=== PATIENT | male | born 1970 | race Caucasian/White ===

== ENCOUNTER 2019-05-05 19:09 | Emergency (ER) | payer BC ==
[2019-05-05] MEDS ORDERED: NA CHLORIDE 0.9% 1,000 ML ONE (19:27)
--- NOTE | 2019-05-05 19:55 | RAD REPORT ---
EXAM DESCRIPTION: RAD - Hand Right 3 View - 05/05/2019 7:46 pm CLINICAL HISTORY: Right hand pain status post injury FINDINGS: No fracture or dislocation is seen.
--- NOTE | 2019-05-05 20:51 | ER ---
Nurse's Notes [facility] Name: Luis Live Age: 48 yrs Sex: Male : 1970 Arrival Date: 05/05/2019 Time: 19:11 Bed 6 Private MD: Diagnosis: Laceration of extensor muscle, fascia and tendon of left index finger at wrist and hand level;Laceration of extensor muscle, fascia and tendon of left middle finger at wrist and hand level;Dehydration Presentation: 05/05 19:10 Method Of Arrival: Ambulatory 19:10 Transition of care: patient was not received from another setting of care. Complicating fc Factors: There are no complicating factors for this patient. Onset of symptoms was May 05, 2019 at 19:00. Risk Assessment: Do you want to hurt yourself or someone else? Patient reports no desire to harm self or others. Initial Sepsis Screen: Does the patient meet any 2 criteria? Systolic BP < 90 mmHg. Yes Does the patient have a suspected source of infection? No. Patient's initial sepsis screen is negative. Care prior to arrival: Bleeding of injury controlled. 19:10 Acuity: WM 3 fc 19:10 Presenting complaint: Patient states: that he was trimming the bushes and cut his left fc 2nd and 3rd fingers. Bleeding is currently controlled. Historical: - Allergies: 19:25 PENICILLINS; fc 19:25 Erythromycin; fc 19:25 Ibuprofen; fc 19:25 ceftra; fc - Home Meds: 19:25 Vyvanse oral oral [Active]; Trintellix oral oral [Active]; Abilify oral oral [Active]; fc Benicar oral oral [Active]; Lialda oral oral [Active]; - PMHx: 19:25 Hypertension; Ulcerative colitis; Anxiety; Depression; Back pain; ADD/ADHD; fc - PSHx: 19:25 None; fc - Immunization history:: Last tetanus immunization: < 10 years ago Flu vaccine is not up to date. - Social history:: Smoking status: Patient uses tobacco products, denies chronic smoking, but will smoke occasionally, Patient uses alcohol, occasionally. Patient/guardian denies using street drugs. - Ebola Screening: : Patient negative for fever greater than or equal to 101.5 degrees Fahrenheit, and additional compatible Ebola Virus Disease symptoms Patient denies exposure to infectious person Patient denies travel to an Ebola-affected area in the 21 days before illness onset. Screenin:10 Abuse screen: Denies threats or abuse. Nutritional screening: No deficits noted. Tuberculosis screening: No symptoms or risk factors identified. Fall Risk None identified. Assessment: 19:36 General: Appears in no apparent distress. uncomfortable, Behavior is calm, cooperative. bb Pain: Complains of pain in left index and middle finger. Neuro: Level of Consciousness is awake, alert, obeys commands, Oriented to person, place, time, situation. Cardiovascular: Heart tones S1 S2 present skin is pale and clammy. Respiratory: Airway is patent Respiratory effort is even, unlabored, Respiratory pattern is regular. GI: No signs and/or symptoms were reported involving the gastrointestinal system. Derm: Skin is clammy, Skin is pale, Skin temperature is cool. Musculoskeletal: Circulation, motion, and sensation intact. Reports pain in left middle and index finger. Injury Description: Laceration sustained to left middle and index finger is not bleeding. Vital Signs: 19:10 BP 82 / 57; Pulse 71; Resp 18; Temp 99.1(O); Pulse Ox 95% on R/A; Weight 106.59 kg (R); fc Height 6 ft. 1 in. (185.42 cm) (R); Pain 3/10; 20:24 BP 103 / 71; Pulse 75; Resp 17; Pulse Ox 98% on R/A; tl1 21:21 BP 107 / 89 Supine; Pulse 85; tl1 21:21 BP 113 / 92 Standing; Pulse 81; tl1 21:22 BP 110 / 90 Sitting; Pulse 79; tl1 21:24 Resp 16; Pulse Ox 98% on R/A; Pain 3/10; tl1 21:24 Temp 98.9; tl1 19:10 Body Mass Index 31.00 (106.59 kg, 185.42 cm) ED Course: 19:10 Arm band placed on Patient placed in an exam room, on a stretcher. 19:10 Patient has correct armband on for positive identification. Call light in reach. Side rails up X 1. Pulse ox on. NIBP on. 19:11 Patient arrived in ED. as 19:17 Abelino West MD is Attending Physician. tw4 19:20 Triage completed. 19:25 Inserted saline lock: 20 gauge in right antecubital area, using aseptic technique. bb 19:29 Allie Foote, RN is Primary Nurse. bb 19:43 Hand Right 3 View In Process Unspecified. EDMS 21:00 Dressings: Kerlix Steri strips 1/4 " X 1;. tl1 21:22 No provider procedures requiring assistance completed. IV discontinued, intact, tl1 bleeding controlled, No redness/swelling at site. Pressure dressing applied. 21:22 Wound care: located on palmar aspect of distal phalanx of left middle finger and palmar tl1 aspect of distal phalanx of left index finger was cleaned with Hibiclens, soaked in normal saline solution. Administered Medications: 19:29 Drug: NS 0.9% 1000 ml Route: IV; Rate: 1 bolus; Site: right antecubital; bb 20:56 Follow up: IV Status: Completed infusion; IV Intake: 1000ml tl1 Intake: 20:56 IV: 1000ml; Total: 1000ml. tl1 Outcome: 20:50 Discharge ordered by . tw4 21:25 Discharged to home ambulatory, with family. tl1 21:25 Condition: good 21:25 Discharge instructions given to patient, family, Instructed on discharge instructions, follow up and referral plans. wound care, Demonstrated understanding of instructions, follow-up care, wound care. 21:25 Patient left the ED. tl1 Signatures: Dispatcher [employer] EDMT Bessie Andino RN RN Briana Lynn as Alile Foote RN RN Antonina New RN RN tl1 Abelino West MD MD tw4 Corrections: (The following items were deleted from the chart) 19:21 19:18 Presenting complaint: Patient states: that he was trimming the bushes and cut his fc left 2nd and 3rd fingers. Bleeding is currently controlled. 21:22 21:21 BP 113 / 92 Sitting; Pulse 81bpm; tl1 tl1
--- NOTE | 2019-05-05 20:52 | EDPHYS ---
Physician Documentation [facility] Name: Luis Live Age: 48 yrs Sex: Male : 1970 Arrival Date: 05/05/2019 Time: 19:11 Bed 6 Private MD: ED Physician Abelino West HPI: 05/05 21:05 This 48 yrs old Male presents to ER via Ambulatory with complaints of tw4 Laceration To Hand. 21:05 The patient has a laceration related to: doing yard work, from a weed eater, occurred tw4 and drinking heavily today. The laceration(s) is(are) located on the left index fingernail and left middle fingernail. Onset: The symptoms/episode began/occurred today. Associated signs and symptoms: The patient has no apparent associated signs or symptoms. The patient has not experienced similar symptoms in the past. Historical: - Allergies: 19:25 PENICILLINS; fc 19:25 Erythromycin; fc 19:25 Ibuprofen; fc 19:25 ceftra; fc - Home Meds: 19:25 Vyvanse oral oral [Active]; Trintellix oral oral [Active]; Abilify oral oral [Active]; fc Benicar oral oral [Active]; Lialda oral oral [Active]; - PMHx: 19:25 Hypertension; Ulcerative colitis; Anxiety; Depression; Back pain; ADD/ADHD; fc - PSHx: 19:25 None; fc - Immunization history:: Last tetanus immunization: < 10 years ago Flu vaccine is not up to date. - Social history:: Smoking status: Patient uses tobacco products, denies chronic smoking, but will smoke occasionally, Patient uses alcohol, occasionally. Patient/guardian denies using street drugs. - Ebola Screening: : Patient negative for fever greater than or equal to 101.5 degrees Fahrenheit, and additional compatible Ebola Virus Disease symptoms Patient denies exposure to infectious person Patient denies travel to an Ebola-affected area in the 21 days before illness onset. ROS: 21:05 Constitutional: Negative for fever, chills, and weight loss, Eyes: Negative for injury, tw4 pain, redness, and discharge, Cardiovascular: Negative for chest pain, palpitations, and edema, Respiratory: Negative for shortness of breath, cough, wheezing, and pleuritic chest pain, Abdomen/GI: Negative for abdominal pain, nausea, vomiting, diarrhea, and constipation, Back: Negative for injury and pain, Neuro: Negative for headache, weakness, numbness, tingling, and seizure, Psych: Negative for depression, anxiety, suicide ideation, homicidal ideation, and hallucinations. 21:05 MS/extremity: Positive for laceration. Exam: 21:05 Constitutional: This is a well developed, well nourished patient who is awake, alert, tw4 and in no acute distress. Eyes: Pupils equal round and reactive to light, extra-ocular motions intact. Lids and lashes normal. Conjunctiva and sclera are non-icteric and not injected. Cornea within normal limits. Periorbital areas with no swelling, redness, or edema. Cardiovascular: Regular rate and rhythm with a normal S1 and S2. No gallops, murmurs, or rubs. Normal PMI, no JVD. No pulse deficits. Respiratory: Lungs have equal breath sounds bilaterally, clear to auscultation and percussion. No rales, rhonchi or wheezes noted. No increased work of breathing, no retractions or nasal flaring. Abdomen/GI: Soft, non-tender, with normal bowel sounds. No distension or tympany. No guarding or rebound. No evidence of tenderness throughout. 21:05 Musculoskeletal/extremity: Extremities: noted in the left index fingernail: laceration, There is no evidence of abrasion, bite, contusion, decreased ROM, deformity, ecchymosis, erythema, puncture, rash, swelling, noted in the left middle fingernail: laceration, no evidence of abrasion, decreased ROM, deformity, ecchymosis, erythema, rash, swelling. Vital Signs: 19:10 BP 82 / 57; Pulse 71; Resp 18; Temp 99.1(O); Pulse Ox 95% on R/A; Weight 106.59 kg (R); fc Height 6 ft. 1 in. (185.42 cm) (R); Pain 3/10; 20:24 BP 103 / 71; Pulse 75; Resp 17; Pulse Ox 98% on R/A; tl1 21:21 BP 107 / 89 Supine; Pulse 85; tl1 21:21 BP 113 / 92 Standing; Pulse 81; tl1 21:22 BP 110 / 90 Sitting; Pulse 79; tl1 21:24 Resp 16; Pulse Ox 98% on R/A; Pain 3/10; tl1 21:24 Temp 98.9; tl1 19:10 Body Mass Index 31.00 (106.59 kg, 185.42 cm) fc Laceration: 21:10 Wound Repair of 1cm ( 0.4in ) subcutaneous laceration to left index fingernail. Distal tw4 neuro/vascular/tendon intact. Skin closed with 1-0 Prolene using steeri strips. Dressed with bandaid. Patient tolerated well. 21:10 Wound Repair of subcutaneous laceration to left middle fingernail. Distal tw4 neuro/vascular/tendon intact. 21:10 Wound Repair of 2cm ( 0.8in ) avulsed laceration to left middle fingernail. Distal tw4 neuro/vascular/tendon intact. Wound prep: Simple cleansing. Skin closed with 1-0 Prolene using steri strips. MDM: 19:17 Patient medically screened. tw4 21:10 Differential diagnosis: superficial laceration, tendon injury. Data reviewed: vital tw4 signs, nurses notes. Counseling: I had a detailed discussion with the patient and/or guardian regarding: the historical points, exam findings, and any diagnostic results supporting the discharge/admit diagnosis, radiology results. Special discussion: I discussed with the patient/guardian in detail that at this point there is no indication for admission to the hospital. It is understood, however, that if the symptoms persist or worsen the patient needs to return immediately for re-evaluation. 05/05 19:43 Order name: Hand Right 3 View EDMS 05/05 19:22 Order name: Vital Signs: orthostatic; Complete Time: 21:24 tw4 Administered Medications: 19:29 Drug: NS 0.9% 1000 ml Route: IV; Rate: 1 bolus; Site: right antecubital; bb 20:56 Follow up: IV Status: Completed infusion; IV Intake: 1000ml tl1 Disposition: 05/05/19 20:50 Discharged to Home. Impression: Laceration of extensor muscle, fascia and tendon of left index finger at wrist and hand level, Laceration of extensor muscle, fascia and tendon of left middle finger at wrist and hand level, Dehydration. - Condition is Stable. - Discharge Instructions: Dehydration, Adult, Laceration Care, Adult. - Medication Reconciliation Form, Thank You Letter, Antibiotic Education, Prescription Opioid Use form. - Follow up: Private Physician; When: Upon discharge from the Emergency Department; Reason: If symptoms return, Recheck today's complaints, Continuance of care. - Problem is new. - Symptoms have improved. Signatures: Dispatcher [employer] [facility] Bessie Andino, RN RN Allie Vee RN RN bb Antonina New RN RN tl1 Abelino West MD MD tw4 Corrections: (The following items were deleted from the chart) 19:43 19:25 Finger-Thumb Left+.RAD.RAD.BRZ ordered. [facility] 21:25 20:50 05/05/2019 20:50 Discharged to Home. Impression: Laceration of extensor muscle, tl1 fascia and tendon of left index finger at wrist and hand level; Laceration of extensor muscle, fascia and tendon of left middle finger at wrist and hand level; Dehydration. Condition is Stable. Forms are Medication Reconciliation Form, Thank You Letter, Antibiotic Education, Prescription Opioid Use. Follow up: Private Physician; When: Upon discharge from the Emergency Department; Reason: If symptoms return, Recheck today's complaints, Continuance of care. Problem is new. Symptoms have improved. tw4
[2019-05-05 21:36] VITALS: O2SAT 98
[2019-05-05 21:39] VITALS: BP 110/90
[2019-05-05 21:40] VITALS: TEMP 98.9
== END 2019-05-05 21:25 | disposition home or self-care (01) ==
LOC: ER 19:09
PROC: 0KQD0ZZ Repair Left Hand Muscle, Open Approach (ICD-10-PCS; principal; 2019-05-05)
DX: S66.321A Laceration of extensor muscle, fascia and tendon of left index finger at wrist and hand level, initial encounter (principal); S66.323A Laceration of extensor muscle, fascia and tendon of left middle finger at wrist and hand level, initial encounter; W31.89XA Contact with other specified machinery, initial encounter; Y93.H2 Activity, gardening and landscaping; Y92.9 Unspecified place or not applicable
CPT/HCPCS: 73130; 96360; 99284; 13132; J7030

== ENCOUNTER 2020-11-30 05:11 | Emergency (ER) | payer BC ==
--- OUTSIDE RECORDS SUMMARY | 2020-11-30 05:14 | XMS REPORT | Continuity of Care Document ---
:1970 Author Organization [facility] t Address [address] [place] [address] [address]. [address] [place] [address] Care Team Providers Name Role Phone DR ISADORA Attending Clinician Unavailable DR ISADORA Admitting Clinician Unavailable Problems This patient has no known problems. Allergies, Adverse Reactions, Alerts This patient has no known allergies or adverse reactions. Medications This patient has no known medications. Procedures This patient has no known procedures. Encounters Start End Encounter Admission Attending Care Care Encounter Source Date/Time Date/Time Type Type Clinicians Facility Department ID 2020-09-24 2020-09-24 Outpatient [facility] [id number] 00:00:00 00:00:00 [facility] 2020-07-14 2020-07-14 Outpatient [facility] [id number] 00:00:00 00:00:00 [facility] 2018-03-15 2018-03-15 Out[place] [facility] [id number] 06:35:00 08:50:00 DINA Mcnally [facility] Results This patient has no known results.
[2020-11-30 07:04] LABS: SARS-COV-2 RT PCR NEGATIVE (NEGATIVE)
--- NOTE | 2020-11-30 08:28 | ER ---
Nurse's Notes [facility] Name: Luis Live Age: 50 yrs Sex: Male : 1970 Arrival Date: 11/30/2020 Time: 05:16 Bed 16 Private MD: Diagnosis: Acute bronchitis Presentation: 11/30 05:29 Chief complaint: Patient states: coughing up congestion, low grade fever, difficulty iw breathing, headache, started yesterday, is fully vaccinated for COVID X 1 month ago. Coronavirus screen: Client presents with at least one sign or symptom that may indicate coronavirus-19. Ebola Screen: Patient negative for fever greater than or equal to 101.5 degrees Fahrenheit, and additional compatible Ebola Virus Disease symptoms Patient denies exposure to infectious person. Patient denies travel to an Ebola-affected area in the 21 days before illness onset. No symptoms or risks identified at this time. Initial Sepsis Screen: Does the patient meet any 2 criteria? No. Patient's initial sepsis screen is negative. Does the patient have a suspected source of infection? No. Patient's initial sepsis screen is negative. Risk Assessment: Do you want to hurt yourself or someone else? Patient reports no desire to harm self or others. Onset of symptoms was November 29, 2020. 05:29 Method Of Arrival: Ambulatory iw 05:29 Acuity: WM 3 iw Historical: - Allergies: 05:31 PENICILLINS; iw 05:31 Ibuprofen; iw 05:31 Erythromycin; iw 05:31 Septra; iw - PMHx: 05:31 ADD/ADHD; Anxiety; Back pain; Depression; Hypertension; ulcerative colitis; iw - PSHx: 05:31 None; iw - Immunization history:: Adult Immunizations Client reports receiving the 2nd dose of the Covid vaccine. - Social history:: Smoking status: Patient reports the use of cigarette tobacco products, smokes one-half pack cigarettes per day. Screenin:41 Abuse screen: Denies threats or abuse. Denies injuries from another. Nutritional rr5 screening: No deficits noted. Tuberculosis screening: No symptoms or risk factors identified. Fall Risk None identified. Total Spencer Fall Scale indicates No Risk (0-24 pts). Assessment: 05:30 General: Appears in no apparent distress. comfortable, Behavior is calm, cooperative, rr5 appropriate for age, Reports fever for. 05:30 Pain: Denies pain. Neuro: Level of Consciousness is awake, alert, obeys commands, rr5 Oriented to person, place, situation. Cardiovascular: Capillary refill < 3 seconds Patient's skin is warm and dry. Respiratory: Reports shortness of breath cough that is congestion Airway is patent Respiratory effort is even, unlabored, Respiratory pattern is regular, symmetrical, GI: No signs and/or symptoms were reported involving the gastrointestinal system. : No signs and/or symptoms were reported regarding the genitourinary system. EENT: No signs and/or symptoms were reported regarding the EENT system. Derm: Skin is intact, is healthy with good turgor, Skin temperature is warm. Musculoskeletal: Capillary refill < 3 seconds. Vital Signs: 05:29 BP 139 / 87; Pulse 95; Resp 18; Temp 98.6(O); Pulse Ox 98% on R/A; Weight 110.68 kg; iw Height 6 ft. 2 in. (187.96 cm); 06:30 BP 129 / 97; Pulse 90; Resp 17; Pulse Ox 99% ; rr5 08:22 BP 135 / 98; Pulse 103; Resp 20; Pulse Ox 97% on R/A; kg 05:29 Body Mass Index 31.33 (110.68 kg, 187.96 cm) iw ED Course: 05:16 Patient arrived in ED. bp1 05:29 Boy Tobar, RN is Primary Nurse. rr5 05:31 Triage completed. iw 05:32 Arm band placed on. iw 05:38 Nacho Schmid MD is Attending Physician. mh7 05:41 Patient has correct armband on for positive identification. Bed in low position. Call rr5 light in reach. Pulse ox on. NIBP on. 06:00 COVID swab sent to lab. Flu and/or RSV swab sent to lab. rr5 06:39 CXR XRAY In Process Unspecified. EDMS 08:18 No provider procedures requiring assistance completed. Patient did not have IV access kg during this emergency room visit. Administered Medications: No medications were administered Outcome: 08:27 Discharge ordered by . ma2 09:05 Discharged to home ambulatory. kg 09:05 Condition: good 09:05 Discharge instructions given to patient, Instructed on discharge instructions, follow up and referral plans. Demonstrated understanding of instructions, follow-up care, medications, Prescriptions given X 4. 09:06 Patient left the ED. kg Signatures: Dispatcher [employer] EDJessica Beyer RN RN iw Babar Kent MD MD ma2 Boy Tobar RN RN rr5 [facility] Nacho Schmid MD MD 7 Celina Yousif kg
--- NOTE | 2020-11-30 08:28 | EDPHYS ---
Physician Documentation [facility] Name: Luis Live Age: 50 yrs Sex: Male : 1970 Arrival Date: 11/30/2020 Time: 05:16 Bed 16 Private MD: ED Physician Nacho Schmid HPI: 11/30 06:48 This 50 yrs old Male presents to ER via Ambulatory with complaints of Fever, mh7 Cough, Runny Nose, Congestion. 06:48 The patient reports fever, not measured (subjective). Onset: The symptoms/episode mh7 began/occurred yesterday. Modifying factors: The patient has had contact with sick daughter. Associated signs and symptoms: Pertinent positives: cough, that is dry, myalgias, runny nose, sinus congestion, sore throat, Pertinent negatives: abdominal pain, altered mental status, arthralgias, backache, chest pain, chills, diarrhea, pulling at ears, earache, headache, hemoptysis, nausea, night sweats, sinus drainage, skin rash, shortness of breath, swelling, vomiting. Severity of symptoms: At their worst the symptoms were moderate last night, in the emergency department the symptoms have improved moderately. Historical: - Allergies: 05:31 PENICILLINS; iw 05:31 Ibuprofen; iw 05:31 Erythromycin; iw 05:31 Aprra; iw - PMHx: 05:31 ADD/ADHD; Anxiety; Back pain; Depression; Hypertension; ulcerative colitis; iw - PSHx: 05:31 None; iw - Immunization history:: Adult Immunizations Client reports receiving the 2nd dose of the Covid vaccine. - Social history:: Smoking status: Patient reports the use of cigarette tobacco products, smokes one-half pack cigarettes per day. ROS: 06:48 Eyes: Negative for injury, pain, redness, and discharge, Neck: Negative for injury, mh7 pain, and swelling, Cardiovascular: Negative for chest pain, palpitations, and edema, Abdomen/GI: Negative for abdominal pain, nausea, vomiting, diarrhea, and constipation, Back: Negative for injury and pain, : Negative for injury, bleeding, discharge, and swelling, MS/Extremity: Negative for injury and deformity, Skin: Negative for injury, rash, and discoloration, Neuro: Negative for headache, weakness, numbness, tingling, and seizure, Psych: Negative for depression, anxiety, suicide ideation, homicidal ideation, and hallucinations, Allergy/Immunology: Negative for hives, rash, and allergies, Endocrine: Negative for neck swelling, polydipsia, polyuria, polyphagia, and marked weight changes, Hematologic/Lymphatic: Negative for swollen nodes, abnormal bleeding, and unusual bruising. Exam: 06:48 Constitutional: This is a well developed, well nourished patient who is awake, alert, mh7 and in no acute distress. Head/Face: Normocephalic, atraumatic. Eyes: Pupils equal round and reactive to light, extra-ocular motions intact. Lids and lashes normal. Conjunctiva and sclera are non-icteric and not injected. Cornea within normal limits. Periorbital areas with no swelling, redness, or edema. ENT: Nares patent. No nasal discharge, no septal abnormalities noted. Tympanic membranes are normal and external auditory canals are clear. Oropharynx with no redness, swelling, or masses, exudates, or evidence of obstruction, uvula midline. Mucous membranes moist. Neck: Trachea midline, no thyromegaly or masses palpated, and no cervical lymphadenopathy. Supple, full range of motion without nuchal rigidity, or vertebral point tenderness. No Meningismus. Chest/axilla: Normal chest wall appearance and motion. Nontender with no deformity. No lesions are appreciated. Cardiovascular: Regular rate and rhythm with a normal S1 and S2. No gallops, murmurs, or rubs. Normal PMI, no JVD. No pulse deficits. Respiratory: Lungs have equal breath sounds bilaterally, clear to auscultation and percussion. No rales, rhonchi or wheezes noted. No increased work of breathing, no retractions or nasal flaring. Abdomen/GI: Soft, non-tender, with normal bowel sounds. No distension or tympany. No guarding or rebound. No evidence of tenderness throughout. Back: No spinal tenderness. No costovertebral tenderness. Full range of motion. Skin: Warm, dry with normal turgor. Normal color with no rashes, no lesions, and no evidence of cellulitis. MS/ Extremity: Pulses equal, no cyanosis. Neurovascular intact. Full, normal range of motion. Neuro: Awake and alert, GCS 15, oriented to person, place, time, and situation. Cranial nerves II-XII grossly intact. Motor strength 5/5 in all extremities. Sensory grossly intact. Cerebellar exam normal. Normal gait. Psych: Awake, alert, with orientation to person, place and time. Behavior, mood, and affect are within normal limits. Vital Signs: 05:29 BP 139 / 87; Pulse 95; Resp 18; Temp 98.6(O); Pulse Ox 98% on R/A; Weight 110.68 kg; iw Height 6 ft. 2 in. (187.96 cm); 06:30 BP 129 / 97; Pulse 90; Resp 17; Pulse Ox 99% ; rr5 08:22 BP 135 / 98; Pulse 103; Resp 20; Pulse Ox 97% on R/A; kg 05:29 Body Mass Index 31.33 (110.68 kg, 187.96 cm) MDM: 07:01 Transition of care: After a detail discussion of the patient's case, care is 7 transferred to Babar Kent MD. 08:27 Data reviewed: vital signs, nurses notes. Counseling: I had a detailed discussion with [facility] the patient and/or guardian regarding: the historical points, exam findings, and any diagnostic results supporting the discharge/admit diagnosis, the presence of at least one elevated blood pressure reading (>120/80) during this emergency department visit, the need for outpatient follow up. Response to treatment: the patient's symptoms have markedly improved after treatment. 08:27 Patient medically screened. [facility] 11/30 06:25 Order name: Rapid Strep; Complete Time: 07:06 [facility] 11/30 07:03 Order name: Throat Culture EDFL 11/30 05:44 Order name: CXR XRAY 11/30 07:05 Order name: COVID-19/FLU A+B; Complete Time: 07:06 EDFL Administered Medications: No medications were administered Disposition: 11/30/20 08:27 Discharged to Home. Impression: Acute bronchitis. - Condition is Stable. - Discharge Instructions: Acute Bronchitis, Adult. - Prescriptions for Tessalon Perles 100 mg Oral Capsule - take 1 capsule by ORAL route every 8 hours As needed; 15 capsule. Diclofenac Sodium 75 mg Oral Tablet Sustained Release - take 1 tablet by ORAL route 2 times per day; 30 tablet. Zithromax Z- Alan 250 mg Oral Tablet - take 1 tablet by ORAL route as directed for 5 days Day 1 - take two (2) tablets one time. Day 2, 3, 4 , 5 take one (1) tablet once daily.; 6 tablet. Medrol (Alan) 4 mg Oral Tablets, Dose Pack - take 1 tablet by ORAL route as directed - follow package instructions; 1 packet. - Medication Reconciliation Form, Thank You Letter, Antibiotic Education, Prescription Opioid Use, Work release form form. - Follow up: Private Physician; When: Tomorrow; Reason: If symptoms return. Signatures: Dispatcher [employer] EDMS Jessica Joy, RN RN iw Pablo Adams, LAYOUT MECHANIC-C LAYOUT MECHANIC-Cla1 Babar Kent MD MD ma2 Nacho Schmid MD MD 7 Celina Yousif kg Corrections: (The following items were deleted from the chart) 06:19 05:45 CORONAVIRUS+MR.LAB.BRZ ordered. EDMS EDMS 06:20 05:45 Influenza Screen (A \T\ B)+BA.LAB.BRZ ordered. EDMS EDMS 06:21 05:44 Influenza Screen (A \T\ B)+BA.LAB.BRZ ordered. EDMS EDMS 06:22 05:44 CORONAVIRUS+MR.LAB.BRZ ordered. EDMS EDMS 06:49 06:48 The patient reports fever, mh7 7 09:06 08:27 11/30/2020 08:27 Discharged to Home. Impression: Acute bronchitis. Condition is kg Stable. Forms are Medication Reconciliation Form, Thank You Letter, Antibiotic Education, Prescription Opioid Use. Follow up: Private Physician; When: Tomorrow; Reason: If symptoms return. ma2
[2020-11-30 09:31] VITALS: TEMP 98.6
[2020-11-30 09:33] VITALS: BP 135/98; O2SAT 97
--- NOTE | 2020-11-30 11:11 | RAD REPORT ---
EXAM DESCRIPTION: RAD - Chest Single View - 11/30/2020 6:38 am CLINICAL HISTORY: Cough;SOB Chest pain. COMPARISON: No comparisons FINDINGS: Portable technique limits examination quality. The lungs are grossly clear. The heart is normal in size. No displaced fractures. IMPRESSION: No acute intrathoracic process suspected.
== END 2020-11-30 09:06 | disposition home or self-care (01) ==
LOC: ER 05:11
DX: J20.9 Acute bronchitis, unspecified (principal); Z20.822 Contact with and (suspected) exposure to COVID-19; F17.210 Nicotine dependence, cigarettes, uncomplicated; F90.9 Attention-deficit hyperactivity disorder, unspecified type; F41.9 Anxiety disorder, unspecified; M54.9 Dorsalgia, unspecified; F32.9 Major depressive disorder, single episode, unspecified; I10 Essential (primary) hypertension; K51.90 Ulcerative colitis, unspecified, without complications
CPT/HCPCS: 87070; 87081; 0240U; 71045; 99284

== ENCOUNTER 2023-02-10 11:51 | Emergency (ER) | payer BC ==
--- OUTSIDE RECORDS SUMMARY | 2023-02-10 11:55 | XMS REPORT | Continuity of Care Document ---
:1970 Author Organization [facility] t Address [address] [facility] [address] [place] [id number] Care Team Providers Name Role Phone Cris Suarez Attending Clinician Unavailable SPARKLE FLOWERS Attending Clinician Unavailable DR DINA MUIR Attending Clinician Unavailable DR DINA MUIR Admitting Clinician Unavailable Payers Payer Name Policy Type Policy Number Effective Date Expiration Date S maría [employer] 6 [id number] Common Spiri t [facility] Blue Cross 6 [id number] Common Spiri t [facility] [id number] 2016 00:00:00 Problems Condition Condition Condition Status Onset Resolution Last Treating Co mments Source Name Details Category Date Date Treatment Clinician Date Generalize Generalize Problem Active C ommon d anxiety d anxiety Spir it disorder disorder [facility] Essential Essential Problem Active Com tue hypertensi hypertensi Sp royal on on [facility] [id number] Insomnia Problem Active Com tue due to [facility] condition [facility] Attention ADHD Problem Active Common deficit (attention Spiri t hyperactiv deficit - [facility] ity hyperactiv St disorder ity [facility] disorder), Medica l combined Center type Major Major Problem Active Common depressive depressive Sp royal disorder disorder - [facility] Erectile Erectile Problem Active Commo n dysfunctio dysfunctio Sp royal n n [facility] [id number] BMI Problem Active Common 35.0-35.9, [facility] adult [facility] [id number] Mixed Problem Active Common hyperlipid [facility] emia [facility] Allergies, Adverse Reactions, Alerts Allergy Allergy Status Severity Reaction(s) Onset Inactive Treating Comm ents Source Name Type Date Date Clinician BRUNILDA DRUG Active Anaphylaxis Uni vers YCIN INGREDI 3-15 ity of 00:00: [place] [facility] IBUPROFE DRUG Active Unknown-Cmnt Un alessandro N INGREDI 3-15 ity of 00:00: [place] [facility] PENICILL Drug Active Anaphylaxis Uni vers INS Class 3-15 ity of 00:00: [place] [facility] SEPTRA DRUG Active Unknown-Cmnt Univ ers I.V. 3-15 ity of 00:00: [place] [facility] 0 Drug Active Unknonw-as a Comm on allergy baby [facility] ibuprofe ibuprofe Active unknown Commo n n n [facility] [id number] Drug Active unknown Common allergy [facility] erythrom erythrom Active unknown Commo n ycin ycin [facility] Social History Social Habit Start Date Stop Date Quantity Comments Source Sex Assigned At Com mon [facility] History of Tobacco Current Smoker Co mmon [facility] Use [facility] Smoking Status Start Date Stop Date Source Current Smoker 2022-03-15 00:00:00 Common Spir t [facility] Medications Ordered Filled Start Stop Current Ordering Indication Dosage Frequency Signature Comments Components Source Medication Medication Date Date Medication? Clinician (SIG) Name Name Lexapro 5 Lexapro 5 No 1{table QD Lexapro 5 MG MG 1-25 t} MG 00:00: 00 Vraylar 1.5 Vraylar 1.5 No 1{capsu QD Vraylar MG MG 1-25 le} 1.5 MG 00:00: 00 Vraylar 3 Vraylar 3 No 1{capsu QD Vraylar 3 MG MG 1-25 le} MG 00:00: 00 Lexapro 10 Lexapro 10 No 1{table QD Lexapro 10 MG MG 1-25 t} MG 00:00: 00 clonazePAM clonazePAM 2020- No QD clonazePAM 0.25 MG 0.25 MG 2-14 0.25 MG 00:00: 00 Sildenafil Sildenafil No Sildenafil Citrate 100 Citrate 100 Citrate MG MG 100 MG Olmesartan Olmesartan No Olmesartan Medoxomil-H Medoxomil-H Medoxomil- CTZ 40-25 CTZ 40-25 HCTZ 40-25 MG MG MG Mesalamine Mesalamine No Mesalamine 1.2 GM 1.2 GM 1.2 GM amLODIPine amLODIPine No 1{table QD amLODIPine Besylate 5 Besylate 5 t} Besylate 5 MG MG MG Mesalamine Mesalamine No Mesalamine 1.2 GM 1.2 GM 1.2 GM Olmesartan Olmesartan No Olmesartan Medoxomil-H Medoxomil-H Medoxomil- CTZ 40-25 CTZ 40-25 HCTZ 40-25 MG MG MG Sildenafil Sildenafil No Sildenafil Citrate 100 Citrate 100 Citrate MG MG 100 MG amLODIPine amLODIPine No amLODIPine Besylate 5 Besylate 5 Besylate 5 MG MG MG Vital Signs Vital Name Observation Time Observation Value Comments Source height 2022-03-15 16:20:00 73 [in_i] [facility] weight 2022-03-15 16:20:00 267.8 [lb_av] [facility] temperature 2022-03-15 16:20:00 97.5 [degF] [facility] bmi 2022-03-15 16:20:00 35.33 kg/m2 [facility] oximetry 2022-03-15 16:20:00 96 % [facility] respiratory rate 2022-03-15 16:20:00 16 /min Comm on [facility] blood pressure 2022-03-15 16:20:00 130 mm[Hg] Common [facility] - systolic [facility] blood pressure 2022-03-15 16:20:00 88 mm[Hg] Common [facility] - diastolic [facility] height 2021-08-25 16:00:00 73 [in_i] [facility] weight 2021-08-25 16:00:00 248 [lb_av] Common [facility] temperature 2021-08-25 16:00:00 97.8 [degF] [facility] bmi 2021-08-25 16:00:00 32.72 kg/m2 [facility] oximetry 2021-08-25 16:00:00 96 % [facility] respiratory rate 2021-08-25 16:00:00 18 /min Comm on [facility] blood pressure 2021-08-25 16:00:00 126 mm[Hg] Common [facility] systolic [facility] blood pressure 2021-08-25 16:00:00 74 mm[Hg] Common [facility] diastolic [facility] Procedures This patient has no known procedures. Encounters Start End Encounter Admission Attending Care Care Encounter Source Date/Time Date/Time Type Type Clinicians Facility Department ID 2023-02-02 Outpatient [place], STLMLC STLMLC [id number] Common 16:04:00 Cris [id number] [facility] 2022-12-29 Outpatient [place], STLMLC STLMLC [id number] Common 15:57:00 Cris [id number] [facility] 2022-12-28 Outpatient [place], STLMLC STLMLC [id number] Common 13:39:00 Cris [id number] [facility] 2022-09-15 Outpatient [place], STLMLC STLMLC [id number] Common 10:37:01 Cris [id number] [facility] 2022-03-11 Outpatient [place], STLMLC STLMLC [id number] Common 13:42:02 Cris [facility] 2021-08-26 Outpatient [place], STLMLC STLMLC [id number] Common 14:32:03 Cris [facility] 2021-08-26 Outpatient [place], STLMLC STLMLC [id number] Common 12:12:57 Cris [id number] [facility] 2022-03-15 2022-03-15 OFFICE STLMLC STLMLC [id number] Co mmon 00:00:00 00:00:00 VISIT [facility] ESTAB PT - CHI LEVEL 4 [facility] 2021-08-25 2021-08-25 OFFICE STLMLC STLMLC [id number] Co mmon 00:00:00 00:00:00 VISIT [facility] ESTAB PT - CHI LEVEL 4 [facility] 2021-02-06 2021-02-06 Outpatient STLMLC STLMLC [id number] Common 00:00:00 00:00:00 [facility] 2020-12-22 2020-12-22 Outpatient STLMLC STLMLC [id number] Common 00:00:00 00:00:00 [facility] 2020-10-28 2020-10-28 Outpatient Ray FLOWERS [facility] [id number] Univers 16:00:00 16:00:[address] [facility] 2020-10-07 2020-10-07 Outpatient [facility] [id number] Univers 16:00:00 16:00:[address] [facility] 2020-09-24 2020-09-24 Outpatient STLMLC STLMLC [id number] Common 00:00:00 00:00:00 [facility] 2020-07-14 2020-07-14 Outpatient STLMLC STLMLC [id number] Common 00:00:00 00:00:00 [facility] 2018-03-15 2018-03-15 Outpatient Julianna MUIR [facility] [id number] [place] 06:35:00 08:50:00 [facility] Results This patient has no known results.
[2023-02-10 12:58] LABS: Absolute Lymphocytes (CBC) 1.8 K/uL (0.7-4.9); Hematocrit 45.7 % (39.6-49.0); Lymphocytes % 14.2 % (15.3-44.8); MCV 86.3 fL (80-100); MPV 8.7 fL (7.6-11.3); RBC Red Blood Cell Count 5.29 M/uL (4.33-5.43)
[2023-02-10 13:04] LABS: Specific Gravity 1.027 (1.005-1.030); Urine Bacteria None Seen /HPF (<20); Urine Bilirubin NEGATIVE (Negative); Urine Blood Negative (Negative); Urine Clarity Extremely Turbid (Clear); Urine Color Dark-Yellow (Yellow); Urine Glucose NEGATIVE (Negative); Urine Mucus 4+ /HPF (None Seen); Urine Protein 1+ (Negative); Urine Urobilinogen Normal (Normal); Urine pH 5.5 (5.0-7.0)
[2023-02-10 13:09] LABS: Barbiturates NEGATIVE (NEGATIVE); Benzodiazepines NEGATIVE (NEGATIVE); Cocaine NEGATIVE (NEGATIVE); METHAMPHETAM NEGATIVE (NEGATIVE); Methadone NEGATIVE (NEGATIVE); Opiates NEGATIVE (NEGATIVE); Phencyclidine NEGATIVE (NEGATIVE); THC Cannibis NEGATIVE (NEGATIVE)
[2023-02-10 13:19] LABS: ALT/SGPT 32 U/L (16-61); AST/SGOT 20 U/L (15-37); Alkaline Phosphatase 59 U/L (45-117); BUN Blood Urea Nitrogen 22 mg/dL (7-18); Bicarbonate 26 mEq/L (21-32); Bilirubin Direct 0.2 mg/dL (0-0.2); Bilirubin Indirect, Calculated 0.7 mg/dL (0.2-0.8); Bilirubin Total 0.9 mg/dL (0.2-1.0); Glomerular Filtration Rate 79 ml/min (=/>90); Glucose Level 100 mg/dL (74-106); Potassium 3.5 mEq/L (3.5-5.1); Sodium Level 134 mEq/L (136-145); Troponin High Sensitivity 5.2 pg/mL (<58.9)
[2023-02-10 13:35] LABS: Protime INR 0.88
--- NOTE | 2023-02-10 15:06 | ER ---
Nurse's Notes [facility] Name: Luis Live Age: 52 yrs Sex: Male : 1970 Arrival Date: 02/10/2023 Time: 11:51 Bed 20 Private MD: Diagnosis: Major depressive disorder, recurrent, unspecified Presentation: 02/10 12:10 Chief complaint: Patient states: Depression worse than usual for 2 weeks. New Zoloft ll1 isn't helping. States passive suicidal thoughts, no specific plan. Sleeping a lot, not concentrating. Coronavirus screen: Vaccine status: Patient reports receiving the 2nd dose of the covid vaccine. Client denies travel out of the [place] in the last 14 days. At this time, the client does not indicate any symptoms associated with coronavirus-19. Ebola Screen: Patient denies travel to an Ebola-affected area in the 21 days before illness onset. Initial Sepsis Screen: Does the patient meet any 2 criteria? No. Patient's initial sepsis screen is negative. Does the patient have a suspected source of infection? No. Patient's initial sepsis screen is negative. Risk Assessment: Do you want to hurt yourself or someone else? Patient reports no desire to harm self or others. Onset of symptoms was January 29, 2023. 12:10 Method Of Arrival: Ambulatory ll1 12:10 Acuity: WM 3 ll1 Historical: - Allergies: 12:12 PENICILLINS; ll1 12:12 Septra; ll1 12:12 Ibuprofen; ll1 12:12 Erythromycin; ll1 - PMHx: 12:12 Depression; ADD/ADHD; Anxiety; Back pain; Hypertension; ulcerative colitis; ll1 - PSHx: 12:12 None; ll1 - Immunization history:: Client reports receiving the 2nd dose of the Covid vaccine. - Social history:: Smoking status: Patient reports the use of cigarette tobacco products, smokes one pack cigarettes per day. - Family history:: not pertinent. Screenin:42 [facility] ED Fall Risk Assessment (Adult) History of falling in the last 3 months, ap3 including since admission No falls in past 3 months (0 pts). Abuse screen: Denies threats or abuse. Nutritional screening: No deficits noted. Tuberculosis screening: No symptoms or risk factors identified. Assessment: 12:42 General: Appears in no apparent distress. Behavior is calm, cooperative, appropriate ap3 for age. Pain: Denies pain. Neuro: Level of Consciousness is awake, alert, obeys commands, Oriented to person, place, time, situation. Cardiovascular: Patient's skin is warm and dry. Respiratory: Airway is patent Respiratory effort is even, unlabored, Respiratory pattern is regular, symmetrical. 13:13 Reassessment: Patient and/or family updated on plan of care and expected duration. Pain ap3 level reassessed. Patient is alert, oriented x 3, equal unlabored respirations, skin warm/dry/pink. 14:25 General: [place] at bedside. ap3 Psych: 12:43 [place] Suicide Severity Screening: In the past month, have you wished you were ap3 or wished you could go to sleep and not wake up? Patient responds "No." "In the past month, have you actually had any thoughts of killing yourself?" Patient responds "no." "In your lifetime, have you ever done anything, started to do anything, or prepared to do anything to end your life?" Patient responds "no.". Subjective: Patient's mood is pleasant. Objective: Patient is cooperative, Speech is normal, Affect is appropriate. Interventions:. Safety Checks: Pt denies substance abuse. 15:20 Commitment: none. ap3 Vital Signs: 12:10 BP 107 / 73; Pulse 89; Resp 17; Temp 97.3; Pulse Ox 96% ; Weight 115.21 kg; Height 6 ll1 ft. 2 in. ; Pain 2/10; 12:10 Body Mass Index 32.61 (115.21 kg, 187.96 cm) ll1 12:10 Pain Scale: Adult ll1 ED Course: 11:54 Patient arrived in ED. im 11:57 Dickson Dyer MD is Attending Physician. rt 12:12 Triage completed. ll1 12:13 Arm band placed on. ll1 12:41 Patti Lai, RN is Primary Nurse. mb9 12:41 Lynette Morgan, SAVI is Primary Nurse. ap3 12:42 Inserted saline lock: 22 gauge in right antecubital area, using aseptic technique. ap3 Blood collected. 12:43 Patient has correct armband on for positive identification. Bed in low position. Call ap3 light in reach. Side rails up X 1. 12:55 Acetaminophen Sent. ap3 12:55 Troponin High Sensitivity Sent. ap3 12:55 Basic Metabolic Panel Sent. ap3 12:55 CBC with Diff Sent. ap3 12:55 ETOH Level Sent. ap3 12:55 Hepatic Function Sent. ap3 12:55 PT-INR Sent. ap3 12:55 Ptt, Activated Sent. ap3 12:55 Salicylate Sent. ap3 12:55 Urinalysis w/ reflexes Sent. ap3 12:55 Urine Drug Screen Sent. ap3 13:09 EKG done, by ED staff, reviewed by Dickson Dyer MD. ap3 13:11 No provider procedures requiring assistance completed. ap3 13:36 Mental health screen request initiated with [facility]. em1 15:20 Provided Education on: discharge education. ap3 15:20 IV discontinued, intact, bleeding controlled, No redness/swelling at site. Pressure ap3 dressing applied. Administered Medications: No medications were administered Medication: 15:20 VIS not applicable for this client. ap3 Outcome: 15:05 Discharge ordered by . rt 15:20 Discharged to home ambulatory. ap3 15:20 Condition: good 15:20 Discharge instructions given to patient, Instructed on discharge instructions, follow up and referral plans. Demonstrated understanding of instructions, follow-up care. 15:20 Patient left the ED. ap3 Signatures: Abad Lynn em1 Lynette Morgan RN RN ap3 Klaudia Mayorga RN RN ll1 Patti Lai RN RN mb9 Dickson Dyer MD MD rt Yesenia Gayle im
--- NOTE | 2023-02-10 15:06 | EDPHYS ---
Physician Documentation [facility] Name: Luis Live Age: 52 yrs Sex: Male : 1970 Arrival Date: 02/10/2023 Time: 11:51 Bed 20 Private MD: ED Physician Dickson Dyer HPI: 02/10 20:14 This 52 yrs old Male presents to ER via Ambulatory with complaints of Depression, rt Anxiety. 20:14 Patient presents to the ED with worsening depression for the past 2 weeks. About 1 week rt ago, his primary rhe started him on Zoloft. He states that since then, he has not improved, has passive suicidal ideation without plans of suicide. Patient came to the ED because he wishes to have these thoughts stop before they worsen. Patient denies homicidal ideation, other acute complaints. Symptoms are moderate severity, no other aggravating or alleviating factors.. Historical: - Allergies: 12:12 PENICILLINS; ll1 12:12 Septra; ll1 12:12 Ibuprofen; ll1 12:12 Erythromycin; ll1 - PMHx: 12:12 Depression; ADD/ADHD; Anxiety; Back pain; Hypertension; ulcerative colitis; ll1 - PSHx: 12:12 None; ll1 - Immunization history:: Client reports receiving the 2nd dose of the Covid vaccine. - Social history:: Smoking status: Patient reports the use of cigarette tobacco products, smokes one pack cigarettes per day. - Family history:: not pertinent. ROS: 20:14 Constitutional: Negative for fever, chills, and weight loss, Cardiovascular: Negative rt for chest pain, palpitations, and edema, Respiratory: Negative for shortness of breath, cough, wheezing, and pleuritic chest pain, Abdomen/GI: Negative for abdominal pain, nausea, vomiting, diarrhea, and constipation, MS/Extremity: Negative for injury and deformity, Skin: Negative for injury, rash, and discoloration, Neuro: Negative for headache, weakness, numbness, tingling, and seizure. 20:14 Psych: Positive for depression, suicidal ideation. Exam: 13:16 ECG was reviewed by the Attending Physician. rt 20:14 Constitutional: This is a well developed, well nourished patient who is awake, alert, rt and in no acute distress. Head/Face: Normocephalic, atraumatic. Chest/axilla: Normal chest wall appearance and motion. Nontender with no deformity. No lesions are appreciated. Cardiovascular: Regular rate and rhythm with a normal S1 and S2. No gallops, murmurs, or rubs. Normal PMI, no JVD. No pulse deficits. Respiratory: Lungs have equal breath sounds bilaterally, clear to auscultation and percussion. No rales, rhonchi or wheezes noted. No increased work of breathing, no retractions or nasal flaring. Abdomen/GI: Soft, non-tender, with normal bowel sounds. No distension or tympany. No guarding or rebound. No evidence of tenderness throughout. 20:14 Psych: Mood depressed, affect congruent, calm, cooperative. Reports passive suicidal ideation, denies plan, denies audiovisual loose Nations, suicidal ideation. Patient exhibits goal oriented behavior, has good insight into his disease process.. Vital Signs: 12:10 BP 107 / 73; Pulse 89; Resp 17; Temp 97.3; Pulse Ox 96% ; Weight 115.21 kg; Height 6 ll1 ft. 2 in. ; Pain 2/10; 12:10 Body Mass Index 32.61 (115.21 kg, 187.96 cm) ll1 12:10 Pain Scale: Adult ll1 MDM: 12:26 Patient medically screened. rt 20:14 Differential Diagnosis SI, depression. Data reviewed: vital signs, nurses notes, lab rt test result(s), EKG. Management of patient was discussed with the following: Behavioral Health Provider: Discussed with behavioral health, states that patient does not appear to be an imminent threat to himself or others. I agree with this, patient was provided resources, follow-up with psychiatry as an outpatient.. Care significantly affected by the following chronic conditions: Hypertension. Counseling: I had a detailed discussion with the patient and/or guardian regarding: the historical points, exam findings, and any diagnostic results supporting the discharge/admit diagnosis, lab results, Patient will return to the ER immediately if he has worsening suicidal thoughts or plans of suicide.. 02/10 12:36 Order name: Acetaminophen; Complete Time: 13:31 rt 02/10 12:36 Order name: Basic Metabolic Panel; Complete Time: 13:31 rt 02/10 12:36 Order name: CBC with Diff; Complete Time: 13:31 rt 02/10 12:36 Order name: ETOH Level; Complete Time: 13:31 rt 02/10 12:36 Order name: Hepatic Function; Complete Time: 13:31 rt 02/10 12:36 Order name: PT-INR; Complete Time: 14:22 rt 02/10 12:36 Order name: Ptt, Activated; Complete Time: 14:22 rt 02/10 12:36 Order name: Salicylate; Complete Time: 14:22 rt 02/10 12:36 Order name: Urinalysis w/ reflexes; Complete Time: 13:31 rt 02/10 12:36 Order name: Urine Drug Screen; Complete Time: 13:31 rt 02/10 12:36 Order name: Troponin High Sensitivity; Complete Time: 13:31 rt 02/10 12:36 Order name: EKG; Complete Time: 12:37 rt 02/10 12:36 Order name: EKG - Nurse/Tech; Complete Time: 13:08 rt 02/10 12:36 Order name: IV Saline Lock; Complete Time: 12:41 rt 02/10 12:36 Order name: Labs collected and sent; Complete Time: 12:54 rt 02/10 12:36 Order name: Suicide Screening (Smoot); Complete Time: 12:41 rt EC:16 Rate is 73 beats/min. Rhythm is regular, Normal Sinus Rhythm with No ectopy. QRS Sisters rt is Normal. [place] interval is normal. QRS interval is normal. QT interval is normal. No Q waves. T waves are Normal. No ST changes noted. Interpreted by me. Administered Medications: No medications were administered Disposition Summary: 02/10/23 15:05 Discharge Ordered Location: Home rt Problem: new rt Symptoms: are unchanged rt Condition: Stable rt Diagnosis - Major depressive disorder, recurrent, unspecified rt Followup: rt - With: Private Physician - When: 2 - 3 days - Reason: Discharge Instructions: - Discharge Summary Sheet rt - Major Depressive Disorder, Adult rt Forms: - Medication Reconciliation Form rt - Thank You Letter rt - Antibiotic Education rt - Prescription Opioid Use rt - Patient Portal Instructions rt Signatures: Dispatcher [employer] Klaudia Feldman, SAVI RN ll1 Dickson Dyer MD MD rt
[2023-02-10 15:56] VITALS: BP 107/73; TEMP 97.3; O2SAT 96
--- NOTE | 2023-02-11 12:51 | EKG ---
Test Date: 2023-02-10 Test Time: 13:07:38 User Interface Artist: ALP MEASUREMENT RESULTS: Intervals: Rate: 73 NH: 156 QRSD: 88 QT: 396 QTc: 436 [place]: P: 41 NH: 156 QRS: 17 T: 44 INTERPRETIVE STATEMENTS: Normal sinus rhythm Normal ECG No previous ECG available for comparison Electronically Signed On 02-11-23 12:49:56 CDT by Avery Sesay
== END 2023-02-10 15:20 | disposition home or self-care (01) ==
LOC: ER 11:51
DX: F33.9 Major depressive disorder, recurrent, unspecified (principal); I10 Essential (primary) hypertension; F17.210 Nicotine dependence, cigarettes, uncomplicated; Z88.0 Allergy status to penicillin; Z88.3 Allergy status to other anti-infective agents; Z88.6 Allergy status to analgesic agent; Z88.8 Allergy status to other drugs, medicaments and biological substances
CPT/HCPCS: 36415; 80048; 80076; 80143; 80179; 80307; 81001; 82077; 84484; 85025; 85610; 85730; 93005; 99284

== ENCOUNTER 2024-07-09 23:02 | Emergency (ER) | payer BC ==
--- OUTSIDE RECORDS SUMMARY | 2024-07-09 23:05 | XMS REPORT | Continuity of Care Document ---
Author Name Unknown Address [address] [place] [address] [facility] [address] [place] [address] Care Team Providers Care Escort Patients Name Role Phone Cris Suarez Attending Clinician Unavailable CHAPINCITO_Ashwini Attending Clinician Unavail able Moises Attending Clinician Unavail able SPARKLE FLOWERS Attending Clinician Unavailable DR DINA MUIR Attending Clinician Unavailable CHAPINCITO_Ashwini Admitting Clinician Unavail able Moises Admitting Clinician Unavail able DR DINA MUIR Admitting Clinician Unavailable Payers Payer Name Policy Type Policy Number Effective Date Expirati on Date Source [facility] 6 [id number] [facility] [id number] 2022 00:00:[address] [facility] 6 [id number] [facility] [id number] [facility] [id number] 2016 00:00:00 Problems Condition Name Condition Details Condition Category Status Onset Date Resolution Date Last Treatment Date Treating Clinician Comments Source Pain of left wrist Pain of Left Wrist Problem Active 10-20 00:00: 00 [facility] Tenosynovi tis of left radial styloid Tenosynovi tis of Left Radial Styloid Problem Active 10-20 00:00: 00 [facility] Radial styloid tenosynovi tis Radial Styloid Tenosynovi tis Problem Active 03-15 00:00: 00 [facility] Generalize d anxiety disorder Generalize d anxiety disorder Problem Active [facility] Essential hypertensi on Essential hypertensi on Problem Active [facility] [id number] Insomnia due to medical condition Problem Active [facility] Attention deficit hyperactiv ity disorder ADHD (attention deficit hyperactiv ity disorder), combined type Problem Active [facility] Major depressive disorder Major depressive disorder Problem Active [facility] Erectile dysfunctio n Erectile dysfunctio n Problem Active [facility] [id number] Sciatica, left side Problem [facility] [id number] Sciatica, right side Problem [facility] [id number] BMI 35.0-35.9, adult Problem Active [facility] [id number] Mixed hyperlipid emia Problem Active [facility] [id number] Left sciatic nerve pain Problem [facility] [id number] Pain in left leg Problem [facility] [id number] Lumbar pain Problem [facility] [id number] Radiculopa thy affecting upper extremity Problem [facility] Allergies, Adverse Reactions, Alerts Allergy Name Allergy Type Status Severity Reaction(s) Onset Date Inactive Date Treating Clinician Comments Source AZITHROM YCIN DRUG INGREDI Active Anaphylaxis 10-13 00:00: 00 [facility] IBUPROFE N DRUG INGREDI Active Unknown-Cmnt 10-13 00:00: 00 [facility] PENICILL INS Drug Class Active Anaphylaxis 10-13 00:00: 00 [facility] SEPTRA I.V. DRUG Active Unknown-Cmnt 10-13 00:00: 00 [facility] Erythrom ycin Allergy to substanc e Active 03-15 00:00: 00 [facility] Ibuprofe n Allergy to substanc e Active 03-15 00:00: 00 [facility] PENICILL IN Allergy to substanc e Active 03-15 00:00: 00 [facility] SEPTRA Allergy to substanc e Active 03-15 00:00: 00 [facility] 0 Drug allergy Active Unknonw-as a baby [facility] ibuprofe n ibuprofe n Active unknown [facility] 6580 Drug allergy Active unknown [facility] 67 Drug allergy Active swelling lips + hives [facility] erythrom ycin erythrom ycin Active unknown [facility] Hydrocod one Allergy to substanc e Active [facility] Social History Social Habit Start Date Stop Date Quantity Comments Source History of Tobacco Use Current Smoker [facility] Sex Assigned At [facility] Smoking Status Start Date Stop Date Source Heavy Tobacco Smoker [facility] Medicine Current Smoker 2024-05-14 00:00:00 [facility] Never Smoker [facility] Medications Ordered Medication Name Filled Medication Name Start Date Stop Date Current Medication? Ordering Clinician Indication Dosage Frequency Signature (SIG) Comments Components Source Gabapentin 300 MG Gabapentin 300 MG 03-01 00:00: 00 No 1{capsu le} BID Gabapentin 300 MG Diclofenac Sodium 50 MG Diclofenac Sodium 50 MG 2022-08 00:00: 00 No 1{table t_as_ne eded} BID Diclofenac Sodium 50 MG amlodipine 2.5 mg tablet RX by other amlodipine 2.5 mg tablet RX by other 03-15 00:00: 00 No amlodipine 2.5 mg tablet RX by other [facility] Benicar 40 mg tablet RX by other MD Benicar 40 mg tablet RX by other MD Phan03-15 00:00: 00 No Benicar 40 mg tablet RX by other MD [facility] Multiple Vitamins Daily tablet RX by other Multiple Vitamins Daily tablet RX by other 03-15 00:00: 00 No Multiple Vitamins Daily tablet RX by other MD [facility] Olmesartan Medoxomil-H CTZ 40-25 MG Olmesartan Medoxomil-H CTZ 40-25 MG No 1{table t} QD Olmesartan Medoxomil- HCTZ 40-25 MG Mesalamine 1.2 GM Mesalamine 1.2 GM No Mesalamine 1.2 GM amLODIPine Besylate 10 MG amLODIPine Besylate 10 MG No 1{table t} QD amLODIPine Besylate 10 MG Sildenafil Citrate 100 MG Sildenafil Citrate 100 MG No Sildenafil Citrate 100 MG ZyrTEC Allergy 10 MG ZyrTEC Allergy 10 MG No 1{table t} QD ZyrTEC Allergy 10 MG Sertraline HCl 25 MG Sertraline HCl 25 MG No Sertraline HCl 25 MG albuterol sulfate HFA 90 mcg/actuati on aerosol inhaler INHALE 2 PUFFS EVERY 4-6 HOURS NEEDED FOR WHEEZING OR COUGHING FITS albuterol sulfate HFA 90 mcg/actuati on aerosol inhaler INHALE 2 PUFFS EVERY 4-6 HOURS NEEDED FOR WHEEZING OR COUGHING FITS No albuterol sulfate HFA 90 mcg/actuat ion aerosol inhaler INHALE 2 PUFFS EVERY 4-6 HOURS NEEDED FOR WHEEZING OR COUGHING FITS [facility] amlodipine 10 mg tablet TAKE 1 TABLET BY MOUTH EVERY DAY amlodipine 10 mg tablet TAKE 1 TABLET BY MOUTH EVERY DAY No amlodipine 10 mg tablet TAKE 1 TABLET BY MOUTH EVERY DAY [facility] amlodipine 5 mg tablet TAKE 1 TABLET BY MOUTH EVERY DAY amlodipine 5 mg tablet TAKE 1 TABLET BY MOUTH EVERY DAY No amlodipine 5 mg tablet TAKE 1 TABLET BY MOUTH EVERY DAY [facility] azithromyci n 250 mg tablet TAKE 2 TABLETS BY MOUTH TODAY, THEN TAKE 1 TABLET DAILY FOR 4 DAYS azithromyci n 250 mg tablet TAKE 2 TABLETS BY MOUTH TODAY, THEN TAKE 1 TABLET DAILY FOR 4 DAYS No azithromyc in 250 mg tablet TAKE 2 TABLETS BY MOUTH TODAY, THEN TAKE 1 TABLET DAILY FOR 4 DAYS [facility] benzonatate 200 mg capsule TAKE 1 CAPSULE BY MOUTH THREE TIMES A DAY NEEDED FOR COUGH benzonatate 200 mg capsule TAKE 1 CAPSULE BY MOUTH THREE TIMES A DAY NEEDED FOR COUGH No benzonatat e 200 mg capsule TAKE 1 CAPSULE BY MOUTH THREE TIMES A DAY NEEDED FOR COUGH [facility] cefpodoxime 200 mg tablet TAKE 1 TABLET BY MOUTH TWICE A DAY cefpodoxime 200 mg tablet TAKE 1 TABLET BY MOUTH TWICE A DAY No cefpodoxim e 200 mg tablet TAKE 1 TABLET BY MOUTH TWICE A DAY [facility] cephalexin 500 mg capsule TAKE 1 CAPSULE BY MOUTH THREE TIMES A DAY FOR 10 DAYS cephalexin 500 mg capsule TAKE 1 CAPSULE BY MOUTH THREE TIMES A DAY FOR 10 DAYS No cephalexin 500 mg capsule TAKE 1 CAPSULE BY MOUTH THREE TIMES A DAY FOR 10 DAYS [facility] desvenlafax ine succinate ER 50 mg tablet,exte nded release 24 hr TAKE 1 TABLET BY MOUTH EVERY DAY FOR 90 DAYS desvenlafax ine succinate ER 50 mg tablet,exte nded release 24 hr TAKE 1 TABLET BY MOUTH EVERY DAY FOR 90 DAYS No desvenlafa xine succinate ER 50 mg tablet,ext ended release 24 hr TAKE 1 TABLET BY MOUTH EVERY DAY FOR 90 DAYS [facility] diclofenac sodium 50 mg tablet,michael yed release TAKE 1 TABLET BY MOUTH TWICE A DAY NEEDED diclofenac sodium 50 mg tablet,michael yed release TAKE 1 TABLET BY MOUTH TWICE A DAY NEEDED No diclofenac sodium 50 mg tablet,del ayed release TAKE 1 TABLET BY MOUTH TWICE A DAY NEEDED [facility] doxycycline hyclate 100 mg capsule TAKE 1 CAPSULE BY MOUTH EVERY 12 HOURS doxycycline hyclate 100 mg capsule TAKE 1 CAPSULE BY MOUTH EVERY 12 HOURS No doxycyclin e hyclate 100 mg capsule TAKE 1 CAPSULE BY MOUTH EVERY 12 HOURS [facility] doxycycline hyclate 100 mg tablet TAKE 1 TABLET EVERY 12 HOURS DAILY doxycycline hyclate 100 mg tablet TAKE 1 TABLET EVERY 12 HOURS DAILY No doxycyclin e hyclate 100 mg tablet TAKE 1 TABLET EVERY 12 HOURS DAILY [facility] doxycycline monohydrate 100 mg capsule TAKE 1 CAPSULE BY MOUTH TWICE A DAY doxycycline monohydrate 100 mg capsule TAKE 1 CAPSULE BY MOUTH TWICE A DAY No doxycyclin e monohydrat e 100 mg capsule TAKE 1 CAPSULE BY MOUTH TWICE A DAY [facility] hydrocodone 10 mg-acetamin ophen 325 mg tablet TAKE 1 TABLET EVERY 6 HOURS NEEDED FOR PAIN hydrocodone 10 mg-acetamin ophen 325 mg tablet TAKE 1 TABLET EVERY 6 HOURS NEEDED FOR PAIN No hydrocodon e 10 mg-acetami nophen 325 mg tablet TAKE 1 TABLET EVERY 6 HOURS NEEDED FOR PAIN [facility] mesalamine 1.2 gram tablet,michael yed release TAKE 2 TABLETS BY MOUTH DAILY 2 TABS BY MOUTH DAILY mesalamine 1.2 gram tablet,michael yed release TAKE 2 TABLETS BY MOUTH DAILY 2 TABS BY MOUTH DAILY No mesalamine 1.2 gram tablet,del ayed release TAKE 2 TABLETS BY MOUTH DAILY 2 TABS BY MOUTH DAILY [facility] methylpredn isolone 4 mg tablets in a dose pack TAKE 6 TABLETS ON DAY 1 DIRECTED ON PACKAGE AND DECREASE BY 1 TAB EACH DAY FOR A TOTAL OF 6 DAYS methylpredn isolone 4 mg tablets in a dose pack TAKE 6 TABLETS ON DAY 1 DIRECTED ON PACKAGE AND DECREASE BY 1 TAB EACH DAY FOR A TOTAL OF 6 DAYS No methylpred nisolone 4 mg tablets in a dose pack TAKE 6 TABLETS ON DAY 1 DIRECTED ON PACKAGE AND DECREASE BY 1 TAB EACH DAY FOR A TOTAL OF 6 DAYS [facility] olmesartan 40 mg-hydrochl orothiazide 25 mg tablet TAKE 1 TABLET BY MOUTH EVERY DAY olmesartan 40 mg-hydrochl orothiazide 25 mg tablet TAKE 1 TABLET BY MOUTH EVERY DAY No olmesartan 40 mg-hydroch lorothiazi de 25 mg tablet TAKE 1 TABLET BY MOUTH EVERY DAY [facility] promethazin e-DM 6.25 mg-15 mg/5 mL oral syrup TAKE 5 ML BY MOUTH EVERY 6 HOURS NEEDED FOR COUGH promethazin e-DM 6.25 mg-15 mg/5 mL oral syrup TAKE 5 ML BY MOUTH EVERY 6 HOURS NEEDED FOR COUGH No promethazi ne-DM 6.25 mg-15 mg/5 mL oral syrup TAKE 5 ML BY MOUTH EVERY 6 HOURS NEEDED FOR COUGH [facility] sertraline 25 mg tablet TAKE 1 TABLET BY MOUTH EVERY DAY FOR 30 DAYS sertraline 25 mg tablet TAKE 1 TABLET BY MOUTH EVERY DAY FOR 30 DAYS No sertraline 25 mg tablet TAKE 1 TABLET BY MOUTH EVERY DAY FOR 30 DAYS [facility] sertraline 50 mg tablet TAKE 1 TABLET DAILY sertraline 50 mg tablet TAKE 1 TABLET DAILY No sertraline 50 mg tablet TAKE 1 TABLET DAILY [facility] Vraylar 3 mg capsule TAKE 1 CAPSULE BY MOUTH EVERY DAY FOR 90 DAYS Vraylar 3 mg capsule TAKE 1 CAPSULE BY MOUTH EVERY DAY FOR 90 DAYS No Vraylar 3 mg capsule TAKE 1 CAPSULE BY MOUTH EVERY DAY FOR 90 DAYS [facility] Immunizations Ordered Immunization Name Filled Immunization Name Date Status Comments Source Fluarix Fluarix Unknown Completed [facility] Fluarix Fluarix Unknown Completed [facility] Fluarix Fluarix Unknown Completed [facility] Fluarix (IIV4) - SDS - 0.5mL Fluarix (IIV4) - SDS - 0.5mL Unknown Completed [facility] Fluarix (IIV4) - SDS - 0.5mL Fluarix (IIV4) - SDS - 0.5mL Unknown Completed [facility] Fluarix (IIV4) - SDS - 0.5mL Fluarix (IIV4) - SDS - 0.5mL Unknown Completed [facility] Fluarix (IIV4) - SDS - 0.5mL Fluarix (IIV4) - SDS - 0.5mL Unknown Completed [facility] Fluarix (IIV4) - SDS - 0.5mL Fluarix (IIV4) - SDS - 0.5mL Unknown Completed [facility] Fluarix (IIV4) - SDS - 0.5mL Fluarix (IIV4) - SDS - 0.5mL Unknown Completed [facility] Fluarix (IIV4) - SDS - 0.5mL Fluarix (IIV4) - SDS - 0.5mL Unknown Completed [facility] Fluarix (IIV4) - SDS - 0.5mL Fluarix (IIV4) - SDS - 0.5mL Unknown Completed [facility] Fluarix (IIV4) - SDS - 0.5mL Fluarix (IIV4) - SDS - 0.5mL Unknown Completed [facility] Fluarix (IIV4) - SDS - 0.5mL Fluarix (IIV4) - SDS - 0.5mL Unknown Completed [facility] Fluarix (IIV4) - SDS - 0.5mL Fluarix (IIV4) - SDS - 0.5mL Unknown Completed [facility] Fluarix (IIV4) - SDS - 0.5mL Fluarix (IIV4) - SDS - 0.5mL Unknown Completed [facility] Fluarix (IIV4) - SDS - 0.5mL Fluarix (IIV4) - SDS - 0.5mL Unknown Completed [facility] Fluarix (IIV4) - SDS - 0.5mL Fluarix (IIV4) - SDS - 0.5mL Unknown Completed [facility] Fluarix (IIV4) - SDS - 0.5mL Fluarix (IIV4) - SDS - 0.5mL Unknown Completed [facility] Fluarix (IIV4) - SDS - 0.5mL Fluarix (IIV4) - SDS - 0.5mL Unknown Completed [facility] Fluarix (IIV4) - SDS - 0.5mL Fluarix (IIV4) - SDS - 0.5mL Unknown Completed [facility] Fluarix (IIV4) - SDS - 0.5mL Fluarix (IIV4) - SDS - 0.5mL Unknown Completed [facility] Fluarix (IIV4) - SDS - 0.5mL Fluarix (IIV4) - SDS - 0.5mL Unknown Completed [facility] Fluarix (IIV4) - SDS - 0.5mL Fluarix (IIV4) - SDS - 0.5mL Unknown Completed [facility] Fluarix (IIV4) - SDS - 0.5mL Fluarix (IIV4) - SDS - 0.5mL Unknown Completed [facility] Fluarix (IIV4) - SDS - 0.5mL Fluarix (IIV4) - SDS - 0.5mL Unknown Completed [facility] Fluarix Fluarix Unknown Completed [facility] Vital Signs Vital Name Observation Time Observation Value Comments S maría height 2024-05-14 09:00:00 73 [in_i] Commo n [facility] weight 2024-05-14 09:00:00 241.2 [lb_av] Co mmon [facility] temperature 2024-05-14 09:00:00 97.9 [degF] Com mon [facility] bmi 2024-05-14 09:00:00 31.82 kg/m2 Comm on [facility] oximetry 2024-05-14 09:00:00 97 % Commo n [facility] respiratory rate 2024-05-14 09:00:00 15 /min [facility] blood pressure systolic 2024-05-14 09:00:00 127 mm[Hg] Common [facility] blood pressure diastolic 2024-05-14 09:00:00 82 mm[Hg] [facility] height 2024-03-01 16:00:00 73 [in_i] Commo n [facility] weight 2024-03-01 16:00:00 234 [lb_av] Comm on [facility] bmi 2024-03-01 16:00:00 30.87 kg/m2 Comm on [facility] height 2023-12-16 09:40:00 73 [in_i] Commo n [facility] weight 2023-12-16 09:40:00 240.4 [lb_av] Co on [facility] temperature 2023-12-16 09:40:00 98.2 [degF] Com mon [facility] bmi 2023-12-16 09:40:00 31.71 kg/m2 Comm on [facility] oximetry 2023-12-16 09:40:00 95 % Commo n [facility] respiratory rate 2023-12-16 09:40:00 15 /min [facility] blood pressure systolic 2023-12-16 09:40:00 122 mm[Hg] [facility] blood pressure diastolic 2023-12-16 09:40:00 66 mm[Hg] [facility] Body Weight 2023-10-21 00:00:00 235 [lb_av] [facility] Height 2023-10-21 00:00:00 74 [in_i] [facility] BMI (Body Mass Index) 2023-10-21 00:00:00 30.2 kg/m2 [facility] height 2023-07-27 09:40:00 73 [in_i] Commo n [facility] weight 2023-07-27 09:40:00 248.0 [lb_av] Co mmon [facility] temperature 2023-07-27 09:40:00 97.9 [degF] Com mon [facility] bmi 2023-07-27 09:40:00 32.72 kg/m2 Comm on [facility] oximetry 2023-07-27 09:40:00 100 % Commo n [facility] respiratory rate 2023-07-27 09:40:00 16 /min [facility] blood pressure systolic 2023-07-27 09:40:00 130 mm[Hg] Common [facility] blood pressure diastolic 2023-07-27 09:40:00 72 mm[Hg] [facility] height 2023-05-06 08:00:00 73 [in_i] Commo n [facility] weight 2023-05-06 08:00:00 253.6 [lb_av] Co mmon [facility] temperature 2023-05-06 08:00:00 98.0 [degF] Com mon [facility] bmi 2023-05-06 08:00:00 33.45 kg/m2 Comm on [facility] oximetry 2023-05-06 08:00:00 96 % Commo n [facility] respiratory rate 2023-05-06 08:00:00 15 /min [facility] blood pressure systolic 2023-05-06 08:00:00 134 mm[Hg] [facility] blood pressure diastolic 2023-05-06 08:00:00 77 mm[Hg] [facility] height 2023-03-11 09:00:00 73 [in_i] Commo n [facility] weight 2023-03-11 09:00:00 253.0 [lb_av] Co mmon [facility] temperature 2023-03-11 09:00:00 97.5 [degF] Com mon [facility] bmi 2023-03-11 09:00:00 33.38 kg/m2 Comm on [facility] oximetry 2023-03-11 09:00:00 96 % Commo n [facility] respiratory rate 2023-03-11 09:00:00 16 /min [facility] blood pressure systolic 2023-03-11 09:00:00 121 mm[Hg] [facility] blood pressure diastolic 2023-03-11 09:00:00 83 mm[Hg] [facility] height 2023-02-03 08:20:00 73 [in_i] Commo n [facility] weight 2023-02-03 08:20:00 264.6 [lb_av] Co mmon [facility] temperature 2023-02-03 08:20:00 98.1 [degF] Com mon [facility] bmi 2023-02-03 08:20:00 34.91 kg/m2 Comm on [facility] oximetry 2023-02-03 08:20:00 95 % Commo n [facility] respiratory rate 2023-02-03 08:20:00 16 /min [facility] blood pressure systolic 2023-02-03 08:20:00 122 mm[Hg] [facility] blood pressure diastolic 2023-02-03 08:20:00 78 mm[Hg] [facility] height 2022-12-29 16:20:00 73 [in_i] Commo n [facility] weight 2022-12-29 16:20:00 264.0 [lb_av] Co mmon [facility] temperature 2022-12-29 16:20:00 97.3 [degF] Com mon [facility] bmi 2022-12-29 16:20:00 34.83 kg/m2 Comm on [facility] oximetry 2022-12-29 16:20:00 95 % Commo n [facility] respiratory rate 2022-12-29 16:20:00 16 /min [facility] blood pressure systolic 2022-12-29 16:20:00 138 mm[Hg] [facility] blood pressure diastolic 2022-12-29 16:20:00 81 mm[Hg] [facility] blood pressure diastolic 2022-09-17 10:40:00 83 mm[Hg] [facility] height 2022-09-17 10:40:00 73 [in_i] Commo n [facility] weight 2022-09-17 10:40:00 267.0 [lb_av] Co mmon [facility] temperature 2022-09-17 10:40:00 98.1 [degF] Com mon [facility] bmi 2022-09-17 10:40:00 35.22 kg/m2 Comm on [facility] oximetry 2022-09-17 10:40:00 96 % Commo n [facility] respiratory rate 2022-09-17 10:40:00 16 /min [facility] blood pressure systolic 2022-09-17 10:40:00 139 mm[Hg] [facility] height 2022-03-15 16:20:00 73 [in_i] Commo n [facility] weight 2022-03-15 16:20:00 267.8 [lb_av] Co mmon [facility] temperature 2022-03-15 16:20:00 97.5 [degF] Com [facility] bmi 2022-03-15 16:20:00 35.33 kg/m2 Comm on [facility] oximetry 2022-03-15 16:20:00 96 % Commo n [facility] respiratory rate 2022-03-15 16:20:00 16 /min [facility] blood pressure systolic 2022-03-15 16:20:00 130 mm[Hg] [facility] blood pressure diastolic 2022-03-15 16:20:00 88 mm[Hg] [facility] height 2021-08-25 16:00:00 73 [in_i] Commo n [facility] weight 2021-08-25 16:00:00 248 [lb_av] Comm on [facility] temperature 2021-08-25 16:00:00 97.8 [degF] Com [facility] bmi 2021-08-25 16:00:00 32.72 kg/m2 Comm on [facility] oximetry 2021-08-25 16:00:00 96 % Commo n [facility] respiratory rate 2021-08-25 16:00:00 18 /min [facility] blood pressure systolic 2021-08-25 16:00:00 126 mm[Hg] [facility] blood pressure diastolic 2021-08-25 16:00:00 74 mm[Hg] [facility] Procedures Procedure Date / Time Performed Performing Clinicia n Source XR, wrist, 3 or more view 2023-10-21 00:00:00 [facility] Back [facility] Hand [facility] Encounters Start Date/Time End Date/Time Encounter Type Admission Type Attending Clinicians Care Facility Care Department Encounter ID Source 2024-05-03 08:28:00 Outpatient ErickCris [facility] [id number] [facility] 2024-04-18 07:48:00 Outpatient ErickCris [facility] [id number] [facility] 2024-02-28 14:29:00 Outpatient ErickCris [facility] [id number] [facility] 2023-12-13 08:21:00 Outpatient ErickCris [facility] [id number] [facility] 2023-08-26 11:04:00 Outpatient DickeyCris stewart [facility] [id number] [facility] 2023-03-10 09:49:00 Outpatient ErickCris [facility] [id number] [facility] 2023-03-02 11:54:00 Outpatient Erick Cris [facility] [id number] [facility] 2023-02-02 16:04:00 Outpatient DickeyCris [facility] [id number] [facility] 2022-12-29 15:57:00 Outpatient Cris Suarez STBALDEV ST[facility] [id number] [facility] 2022-12-28 13:39:00 Outpatient Cris Suarez STLMCRYSTAL STL[facility]C [id number] [facility] 2022-09-15 10:37:01 Outpatient Cris Suarez [facility]C ST[facility] [id number] [facility] 2022-03-11 13:42:02 Outpatient Cris Suarez [facility] ST[facility] [id number] [facility] 2021-08-26 14:32:03 Outpatient Cris Suarez [facility] [id number] [facility] 2021-08-26 12:12:57 Outpatient Cris Suarez [facility]C ST[facility] [id number] [facility] 2024-07-02 16:44:31 2024-07-02 16:44:31 Outpatient SFA MICHAEL [id number] Hector Messina 2024-05-14 00:00:00 2024-05-14 00:00:00 OFFICE VISIT ESTAB PT LEVEL 4 [facility] ST[facility] [id number] [facility] 2024-05-14 00:00:00 2024-05-14 00:00:00 (WEB) [facility] ST[facility] [id number] [facility] 2024-05-14 00:00:00 2024-05-14 00:00:00 (WEB) STLMLC STLMLC [id number] [facility] 2024-05-14 00:00:00 2024-05-14 00:00:00 (WEB) STLMLC STLMLC [id number] [facility] 2024-05-10 14:28:49 2024-05-10 14:28:49 Outpatient SFA SFA [id number] Hector Messina 2024-05-04 08:23:41 2024-05-04 08:23:41 Outpatient SFA SFA [id number] Hector Messina 2024-05-03 00:00:00 2024-05-03 00:00:00 (WEB) STLMLC STLMLC [id number] [facility] 2024-04-20 08:00:02 2024-04-20 08:00:02 Outpatient SFA SFA [id number] Hector Messina 2024-04-06 08:45:17 2024-04-06 08:45:17 Outpatient SFA SFA [id number] Hector Messina 2024-03-01 00:00:00 2024-03-01 00:00:00 OFFICE VISIT ESTAB PT LEVEL 4 STLMLC STLMLC [id number] [facility] 2024-03-01 00:00:00 2024-03-01 00:00:00 (WEB) STLMLC STLMLC [id number] [facility] 2024-02-08 15:21:21 2024-02-08 15:21:21 Outpatient SFA SFA [id number] Hector Messina 2023-12-16 00:00:00 2023-12-16 00:00:00 OFFICE VISIT ESTAB PT LEVEL 3 STLMLC STLMLC [id number] [facility] 2023-12-14 17:22:52 2023-12-14 17:22:52 Outpatient SFA SFA [id number] Hector Messina 2023-11-16 17:19:48 2023-11-16 17:19:48 Outpatient SFA SFA [id number] Hector Messina 2023-11-11 00:00:00 2023-11-11 00:00:00 Outpatient FOG_Dimachk ieh_Om_MD AOSM AOSM [id number] [facility] 2023-11-03 00:00:00 2023-11-03 00:00:00 Outpatient FOG_Dimachk ieh_Om_MD AOSM AOSM [id number] [facility] 2023-10-31 00:00:00 2023-10-31 00:00:00 Outpatient FOG_Dimachk Robinson AO AO [id number] [facility] 2023-10-21 00:00:00 2023-10-21 00:00:00 Javan An MD: [address] [place] [id number] , Ph. [phone] [facility] [place] [facility] FOG_Ofc [facility] [id number] [facility] 2023-10-14 00:00:00 2023-10-14 00:00:00 Outpatient FOG[facility] [id number] [facility] 2023-10-13 00:00:00 2023-10-13 00:00:00 Outpatient FOG_Jeremy Castellanos AO AO [id number] [facility] 2023-10-04 00:00:00 2023-10-04 00:00:00 (WEB) STLMLC STLMLC [id number] [facility] 2023-09-30 00:00:00 2023-09-30 00:00:00 (WEB) STLMLC STLMLC [id number] [facility] 2023-09-30 00:00:00 2023-09-30 00:00:00 (WEB) STLMLC STLMLC [id number] [facility] 2023-09-22 00:00:00 2023-09-22 00:00:00 (WEB) STLMLC STLMLC [id number] [facility] 2023-09-21 00:00:00 2023-09-21 00:00:00 (WEB) STLMLC STLMLC [id number] [facility] 2023-09-20 00:00:00 2023-09-20 00:00:00 (WEB) STLMLC STLMLC [id number] [facility] 2023-09-17 00:00:00 2023-09-17 00:00:00 (WEB) STLMLC STLMLC [id number] [facility] 2023-08-13 00:00:00 2023-08-13 00:00:00 (WEB) STLMLC STLMLC [id number] [facility] 2023-08-10 00:00:00 2023-08-10 00:00:00 (WEB) STLMLC STLMLC [id number] [facility] 2023-08-10 00:00:00 2023-08-10 00:00:00 (WEB) STLMLC STLMLC [id number] [facility] 2023-07-27 00:00:00 2023-07-27 00:00:00 OFFICE VISIT ESTAB PT LEVEL 3 STLMLC STLMLC [id number] [facility] 2023-07-12 00:00:00 2023-07-12 00:00:00 (TEL) STLMLC STLMLC [id number] [facility] 2023-06-10 00:00:00 2023-06-10 00:00:00 (WEB) STLMLC STLMLC [id number] [facility] 2023-06-08 00:00:00 2023-06-08 00:00:00 (WEB) STLMLC STLMLC [id number] [facility] 2023-05-20 08:49:30 2023-05-20 08:49:30 Outpatient SFA SFA [id number] Hector Messina 2023-05-16 00:00:00 2023-05-16 00:00:00 (TEL) STLMLC STLMLC [id number] [facility] 2023-05-16 00:00:00 2023-05-16 00:00:00 (WEB) STLMLC STLMLC [id number] [facility] 2023-05-06 00:00:00 2023-05-06 00:00:00 OFFICE VISIT ESTAB PT LEVEL 3 STLMLC STLMLC [id number] [facility] 2023-05-06 00:00:00 2023-05-06 00:00:00 (WEB) STLMLC STLMLC [id number] [facility] 2023-05-06 00:00:00 2023-05-06 00:00:00 (TEL) STLMLC STLMLC [id number] [facility] 2023-03-25 09:05:09 2023-03-25 09:05:09 Outpatient SFA SFA [id number] Hector Messina 2023-03-11 00:00:00 2023-03-11 00:00:00 OFFICE VISIT ESTAB PT LEVEL 3 STLMLC STLMLC [id number] [facility] 2023-03-04 09:41:45 2023-03-04 09:41:45 Outpatient SFA SFA [id number] Hector Messina 2023-03-02 18:00:00 2023-03-02 18:00:00 Outpatient SFA SFA [id number] Hector Messina 2023-02-09 00:00:00 2023-02-09 00:00:00 (TEL) STLMLC STLMLC [id number] [facility] 2023-02-03 00:00:00 2023-02-03 00:00:00 OFFICE VISIT ESTAB PT LEVEL 4 STLMLC STLMLC [id number] [facility] 2022-12-29 00:00:00 2022-12-29 00:00:00 OFFICE VISIT ESTAB PT LEVEL 4 STLMLC STLMLC [id number] [facility] 2022-09-17 00:00:00 2022-09-17 00:00:00 OFFICE VISIT ESTAB PT LEVEL 4 STLMLC STLMLC [id number] [facility] 2022-03-15 00:00:00 2022-03-15 00:00:00 OFFICE VISIT ESTAB PT LEVEL 4 STLMLC STLMLC [id number] [facility] 2021-08-25 00:00:00 2021-08-25 00:00:00 OFFICE VISIT ESTAB PT LEVEL 4 STLMLC STLMLC [id number] [facility] 2021-02-06 00:00:00 2021-02-06 00:00:00 Outpatient STLMLC STLMLC [id number] [facility] 2020-12-22 00:00:00 2020-12-22 00:00:00 Outpatient STLMLC STLMLC [id number] [facility] 2020-10-28 16:00:00 2020-10-28 16:00:00 Outpatient SPARKLE JIMÉNEZ [facility] [id number] [facility] 2020-10-07 16:00:00 2020-10-07 16:00:00 Outpatient [facility] [id number] [facility] 2020-09-24 00:00:00 2020-09-24 00:00:00 Outpatient STLMLC STLMLC [id number] [facility] 2020-07-14 00:00:00 2020-07-14 00:00:00 Outpatient STLMLC STLMLC [id number] [facility] 2018-03-15 06:35:00 2018-03-15 08:50:00 Outpatient DINA GARCIA [facility] [id number] [facility] Results Test Description Test Time Test Comments Results Result Co mments Source Hip Right 2 View Hip Right 2 View Hip Left 2 View Hip Left 2 View Lumbar Spine 3 Views Lumbar Spine 3 Views MRI Lumbar Spine Wo Con MRI Lumbar Spine Wo Con
[2024-07-10 00:09] LABS: SARS-CoV-2 Antigen CONTROL BLUE LINE VIS/BG OK; SARS-CoV-2 Antigen Rapid Res Negative (Negative)
--- NOTE | 2024-07-10 00:27 | EDPHYS ---
Physician Documentation [facility] Name: Luis Live Age: 53 yrs Sex: Male : 1970 Arrival Date: 07/09/2024 Time: 23:02 Bed 6 Private MD: ED Physician Chilo Lyons HPI: 07/09 23:12 This 53 yrs old Male presents to ER via Unassigned with complaints of Cough, Fever, kb Congestion, Headache, Shortness Of Breath. 23:12 Pt is a 53 year old male who presents for cough, congestion, shortness of breath, kb fever, chills, and bodyaches that started at 1400 today. States his son has had similar symptoms for several days. Denies vomiting, diarrhea. . Historical: - Allergies: 23:15 Erythromycin; lg3 23:15 Ibuprofen; lg3 23:15 PENICILLINS; lg3 23:15 Septra; lg3 - PMHx: 23:15 ADD/ADHD; Anxiety; Back pain; Depression; Hypertension; ulcerative colitis; lg3 - PSHx: 23:15 back (ulcerative colitis); lg3 - Immunization history:: Adult Immunizations up to date. - Infectious Disease History:: Denies. - Social history:: Smoking status: Patient reports the use of cigarette tobacco products, smokes one pack cigarettes per day. Patient/guardian denies using alcohol, street drugs. ROS: 23:12 Constitutional: As per HPI kb Exam: 23:12 Constitutional: This is a well developed, well nourished patient who is awake, alert, kb and in no acute distress. Head/Face: Normocephalic, atraumatic. ENT: Moist Mucous membranes Cardiovascular: Regular rate Respiratory: Respirations even and unlabored. No increased work of breathing. Talking in full sentences Skin: Warm, dry with normal turgor. Normal color. MS/ Extremity: Pulses equal, no cyanosis. Neurovascular intact. Full, normal range of motion. Neuro: Awake and alert, GCS 15, oriented to person, place, time, and situation. Vital Signs: 23:10 BP 117 / 74; Pulse 87; Resp 16 S; Temp 99.5(O); Pulse Ox 5% on R/A; Weight 104.33 kg lg3 (R); Height 6 ft. 2 in. (R); 23:31 BP 120 / 69; Pulse 79; Resp 18; Temp 99.5; Pulse Ox 95% ; Pain 4/10; bm8 12 00:29 BP 121 / 69; Pulse 80; Resp 17; Temp 99.5; Pulse Ox 100% ; Pain 0/10; bm8 07/09 23:10 Body Mass Index 29.53 (104.33 kg, 187.96 cm) lg3 23:31 Pain Scale: Adult bm8 07/10 00:29 Pain Scale: Adult bm8 [place] Coma Score: 07/09 23:31 Eye Response: spontaneous(4). Motor Response: obeys commands(6). Verbal Response: bm8 oriented(5). Total: 15. 07/10 00:29 Eye Response: spontaneous(4). Motor Response: obeys commands(6). Verbal Response: bm8 oriented(5). Total: 15. MDM: 07/09 23:08 Medical Screening Exam initiated kb 23:14 Differential Diagnosis: Other flu, covid, uri. Data reviewed: vital signs, nurses notes.kb 23:14 Test considered but Not performed: X-ray: CXR considered but lungs clear bilaterally, kb resp even and unlabored. . 07/10 00:26 Counseling: I had a detailed discussion with the patient and/or guardian regarding the kb historical points, exam findings, and any diagnostic results supporting the discharge/admit diagnosis, lab results, the need for outpatient follow up, a family practitioner, to return to the emergency department if symptoms worsen or persist or if there are any questions or concerns that arise at home. 07/09 23:12 Order name: Flu; Complete Time: 00:14 kb 07/09 23:12 Order name: SARS-COV-2 Antigen Rapid; Complete Time: 00:09 kb Administered Medications: No medications were administered Disposition: 00:31 Co-signature as Attending Physician, Chilo Lyons MD I agree with the assessment sp4 and plan of care. I reviewed the patient's care provided by Advanced Practice Provider \T\ agree w/ the diagnosis \T\ care plan. I personally saw the pt \T\ performed a substantive portion of the visit, incldng all aspects of the (History/Exam/Medical Decision Making). Disposition Summary: 07/10/24 00:26 Discharge Ordered Notes: Location: Home kb Condition: Stable kb Diagnosis - Acute upper respiratory infection, unspecified kb Followup: kb - With: Emergency Department - When: As needed - Reason: Worsening of condition Followup: kb - With: Private Physician - When: 2 - 3 days - Reason: Recheck today's complaints, Continuance of care, Re-evaluation by your physician Discharge Instructions: - Discharge Summary Sheet kb - Upper Respiratory Infection, Adult, [id number] kb Forms: - Medication Reconciliation Form kb - Antibiotic Education kb - Prescription Opioid Use kb - Patient Portal Instructions kb - Leadership Thank You Letter kb Signatures: Dispatcher [employer] EDMS Samia Senior, SLEEPING CAR CONDUCTOR-C CHAPARRITA-Milly Plascencia RN RN lg3 Chilo Lyons MD MD sp4
--- NOTE | 2024-07-10 00:27 | ER ---
Nurse's Notes [facility] Name: Luis Live Age: 53 yrs Sex: Male : 1970 Arrival Date: 07/09/2024 Time: 23:02 Bed 6 Private MD: Diagnosis: Acute upper respiratory infection, unspecified Presentation: 07/09 23:10 Chief complaint: Patient states: fever, cough, congestion, body aches, SOB beginning lg3 today. Coronavirus screen: Client denies travel out of the [place] in the last 14 days. Client presents with at least one sign or symptom that may indicate coronavirus-19. Standard/surgical mask placed on the client. Ebola Screen: No symptoms or risks identified at this time. Initial Sepsis Screen: Does the patient meet any 2 criteria? No. Patient's initial sepsis screen is negative. Does the patient have a suspected source of infection? No. Patient's initial sepsis screen is negative. Risk Assessment: Do you want to hurt yourself or someone else? Patient reports no desire to harm self or others. Onset of symptoms was July 09, 2024. 23:10 Method Of Arrival: Ambulatory lg3 23:10 Acuity: WM 4 lg3 Triage Assessment: 23:15 General: Appears in no apparent distress. comfortable, Behavior is calm, cooperative. lg3 Pain: Complains of pain in generalized body aches. EENT: No deficits noted. Reports nasal congestion nasal discharge. Neuro: No deficits noted. Colon Agitation-Sedation Scale (RASS): 0 - Alert and Calm Level of Consciousness is awake, alert, obeys commands, Oriented to person, place, time, situation. Cardiovascular: No deficits noted. Capillary refill < 3 seconds Clubbing of nail beds is absent JVD is absent Patient's skin is warm and dry. Respiratory: No deficits noted. Airway is patent Respiratory effort is even, unlabored, Respiratory pattern is regular, symmetrical, Breath sounds are clear bilaterally. GI: No deficits noted. No signs and/or symptoms were reported involving the gastrointestinal system. : No signs and/or symptoms were reported regarding the genitourinary system. Derm: No deficits noted. No signs and/or symptoms reported regarding the dermatologic system. Skin is intact, is healthy with good turgor, Skin is dry, Skin is normal, Skin temperature is warm. Musculoskeletal: No deficits noted. No signs and/or symptoms reported regarding the musculoskeletal system. Circulation, motion, and sensation intact. Range of motion: intact in all extremities. Historical: - Allergies: 23:15 Erythromycin; lg3 23:15 Ibuprofen; lg3 23:15 PENICILLINS; lg3 23:15 Septra; lg3 - PMHx: 23:15 ADD/ADHD; Anxiety; Back pain; Depression; Hypertension; ulcerative colitis; lg3 - PSHx: 23:15 back (ulcerative colitis); lg3 - Immunization history:: Adult Immunizations up to date. - Infectious Disease History:: Denies. - Social history:: Smoking status: Patient reports the use of cigarette tobacco products, smokes one pack cigarettes per day. Patient/guardian denies using alcohol, street drugs. Screenin:31 [facility] ED Fall Risk Assessment (Adult) History of falling in the last 3 months, bm8 including since admission No falls in past 3 months (0 pts) Confusion or Disorientation No (0 pts) Intoxicated or Sedated No (0 pts) Impaired Gait No (0 pts) Mobility Assist Device Used No (0 pt) Altered Elimination No (0 pt) Score/Fall Risk Level 0 - 2 = Low Risk Oriented to surroundings, Maintained a safe environment, Educated pt \T\ family on fall prevention, incl call for assistance when getting out of bed, Provided non-skid footwear, Hourly rounding (assess needs \T\ fall precautionary measures) done, Used ambulatory aids as needed (educated on \T\ assisted with), Used gait belt as appropriate. Abuse screen: Denies threats or abuse. Nutritional screening: No deficits noted. Tuberculosis screening: No symptoms or risk factors identified. Assessment: 23:31 General: Appears in no apparent distress. comfortable. Pain: Complains of pain in chest bm8 Pain currently is 4 out of 10 on a pain scale. Neuro: No deficits noted. Level of Consciousness is awake, alert, obeys commands, Oriented to person, place, time, situation, Appropriate for age. Cardiovascular: Reports chest pain, from cough Heart tones S1 S2 present Capillary refill < 3 seconds in bilateral fingers Patient's skin is warm and dry. Respiratory: Reports cough that is productive, Airway is patent Trachea midline Respiratory effort is even, unlabored, Respiratory pattern is regular, symmetrical, Breath sounds are clear bilaterally. GI: No deficits noted. No signs and/or symptoms were reported involving the gastrointestinal system. : No deficits noted. No signs and/or symptoms were reported regarding the genitourinary system. EENT: No deficits noted. No signs and/or symptoms were reported regarding the EENT system. Derm: No deficits noted. No signs and/or symptoms reported regarding the dermatologic system. Musculoskeletal: No deficits noted. No signs and/or symptoms reported regarding the musculoskeletal system. 07/10 00:29 Reassessment: Patient appears in no apparent distress at this time. Patient and/or bm8 family updated on plan of care and expected duration. Pain level reassessed. Patient is alert, oriented x 3, equal unlabored respirations, skin warm/dry/pink. Patient denies pain at this time. Patient states feeling better. Patient states symptoms have improved. Vital Signs: 07/09 23:10 BP 117 / 74; Pulse 87; Resp 16 S; Temp 99.5(O); Pulse Ox 5% on R/A; Weight 104.33 kg lg3 (R); Height 6 ft. 2 in. (R); 23:31 BP 120 / 69; Pulse 79; Resp 18; Temp 99.5; Pulse Ox 95% ; Pain 4/10; bm8 12 00:29 BP 121 / 69; Pulse 80; Resp 17; Temp 99.5; Pulse Ox 100% ; Pain 0/10; bm8 12 23:10 Body Mass Index 29.53 (104.33 kg, 187.96 cm) lg3 23:31 Pain Scale: Adult bm8 07/10 00:29 Pain Scale: Adult bm8 [place] Coma Score: 07/09 23:31 Eye Response: spontaneous(4). Motor Response: obeys commands(6). Verbal Response: bm8 oriented(5). Total: 15. 07/10 00:29 Eye Response: spontaneous(4). Motor Response: obeys commands(6). Verbal Response: bm8 oriented(5). Total: 15. ED Course: 07/09 23:05 Patient arrived in ED. jj6 23:08 [facility] FNP[facility]C [facility] kb 23:08 Chilo Lyons MD is Attending Physician. kb 23:15 Triage completed. lg3 23:15 Arm band placed on right wrist. lg3 23:29 Jesus Alberto David, RN is Primary Nurse. bm8 23:31 Patient has correct armband on for positive identification. Placed in gown. Bed in low bm8 position. Call light in reach. Adult w/ patient. Client placed on continuous cardiac and pulse oximetry monitoring. NIBP monitoring applied. Pulse ox on. NIBP on. Door closed. Noise minimized. Pillow given. Verbal reassurance given. Head of bed elevated. 23:31 No provider procedures requiring assistance completed. COVID swab sent to lab. Flu bm8 and/or RSV swab sent to lab. Patient maintains SpO2 saturation greater than 95% on room air. 07/10 00:29 Provided Education on: post er care. bm8 00:29 Patient did not have IV access during this emergency room visit. bm8 Administered Medications: No medications were administered Medication: 07/09 23:31 VIS not applicable for this client. bm8 Outcome: 07/10 00:26 Discharge ordered by . kb 00:29 Discharged to home ambulatory, bm8 00:29 Condition: stable 00:29 Discharge instructions given to patient, family, Instructed on discharge instructions, follow up and referral plans. medication usage, safety practices, Demonstrated understanding of instructions, follow-up care, medications, Prescriptions given X 00:31 Patient left the ED. bm8 Signatures: Samia Senior, CHELLE CHEATHAM-Milly Plascencia, RN RN lg3 Jenna Tran jj6 Jesus Alberto David, RN RN bm8
[2024-07-10 05:48] VITALS: TEMP 99.5
[2024-07-10 05:51] VITALS: BP 121/69; O2SAT 100
== END 2024-07-10 00:31 | disposition home or self-care (01) ==
LOC: ER 23:02
DX: J06.9 Acute upper respiratory infection, unspecified (principal); F17.210 Nicotine dependence, cigarettes, uncomplicated; Z11.52 Encounter for screening for COVID-19
CPT/HCPCS: 36415; 87804; 87811; 99284